=== PATIENT | male | born 1995 | race Caucasian/White ===

== ENCOUNTER 2020-09-16 20:29 | Emergency (ER) | payer SELFPAY ==
[2020-09-16 20:33] VITALS: BP 156/106; PULSE 110; RESP 18; TEMP 36.3; O2SAT 96
--- NOTE | 2020-09-16 20:35 | ED.GENADUL_ITS ---
Discharge Plan Disposition Patient Disposition: HOME Condition: Stable Discharge Details Clinical Impression: Tick bite Primary Care Provider: None,None ED Provider: Elliot Sutherland Home Meds and New Rx's Prescriptions: Discontinued oxycodone-acetaminophen 1 TAB tablet 1 tab PO HS PRN PRNQty: 7 RF: 0 cyclobenzaprine 10 MG tablet 10 mg PO TID PRN PRNQty: 7 RF: 0 Discharge Instructions Instructions: Tick Bite (ED) Additional Instructions: A single dose of doxycycline has been given now. Please keep the area clean and dry, you may change antibiotic dressing daily. Watch for new or worsening symptoms such as fever, joint pain, bull's-eye rash developing somewhere on your body, etc. return to the ER. Otherwise contact your primary care provider for outpatient reevaluation. Medical Decision Making Patient presents with a tick bite, likely less than 12-24 hours. The tick was removed and was not engorged. He is otherwise asymptomatic. Pulse in triage reports 110 however it was in the 80s during my evaluation. Patient is primarily concerned that there may be a piece of the jaw still in his bite site. Will provide a single dose of 200 mg doxycycline, no clear indication for 21 days therapy. Using an 11 blade, I was able to gently remove the scab from the wound. I was able to visualize the base of the wound and I see no evidence of a foreign body. Band-Aid was applied. Patient has no additional questions or concerns and is comfortable at this time Medical Records Medical records reviewed: Yes I reviewed the patient's medical records. HPI General Mode of arrival: ambulatory . Date/Time Provider Initiated Documentation: 09/16/20 20:35 . Limitations to Documentation: no limitations . Information obtained by: patient . HPI Narrative: 25-year-old gentleman who denies significant past medical history reports that he was outside working in the [place] yesterday all day. This morning while taking a shower he noticed a tick that was not engorged with blood on his posterior right shoulder. His mother was able to remove the tick using a needle. He is concerned that the job of the tick may still be embedded. He denies fever, rash, joint pain. He denies any pain or drainage. No additional questions or concerns Related Data Allergies Allergy/AdvReac Type Severity Reaction Status Date / Time amoxicillin AdvReac Mild Nausea Unverified 05/27/16 10:22 Review of Systems Constitutional Constitutional: Denies fever(s) Musculoskeletal Musculoskeletal: Denies arthralgias Integumentary/Breasts Skin/Breast: Denies rash [facility] Social History Smoking/Tobacco Use Status: Current-Occasional Smoking risk assessment performed?: Yes Alcohol Intake: current Alcohol Intake frequency: a few times a month Drug use: Occasionally Do you feel safe at home: Yes Do you feel safe in your relationship?: Yes Exam Const General: cooperative, healthy appearing, comfortable and no acute distress Orientation: alert and awake [facility] Head: normal to inspection, normocephalic and atraumatic Eyes General: appearance normal, both eyes and all related structures Conjunctivae: conjunctivae normal Sclera: sclerae normal Neck Neck: normal visual inspection, full ROM, trachea midline and supple Chest Chest: normal inspection of the chest Resp Effort & Inspection: normal respiratory effort and able to speak in complete sentences Cardio Rate: regular rate Rhythm: regular rhythm GI Inspection: normal to inspection Back/Spine/Pelvis Back: No back tenderness Skin Full body images: 1. Shallow scabbed wound. There is no surrounding erythema, warmth, tenderness, induration or fluctuance or drainage. I see no obvious signs of foreign body. Neuro General: patient alert, patient awake, moves all extremities and no focal motor deficits Gait: normal gait Motor: muscle tone normal throughout Sensory Exam: no sensory deficits noted Psych Appearance: grossly normal Mental Status: mental status grossly normal
[2020-09-16] MEDS: Doxycycline Hyclate 100 MG CAP 200 MG PO (21:09)
== END 2020-09-16 21:10 | disposition home or self-care (01) ==
PROVIDERS: Emergency Provider Physician Assistant
DX: S40.261A Insect bite (nonvenomous) of right shoulder, initial encounter (principal); W57.XXXA Bitten or stung by nonvenomous insect and other nonvenomous arthropods, initial encounter
CPT/HCPCS: 99283

== ENCOUNTER 2020-11-10 08:48 | Emergency (ER) | payer SELFPAY ==
[2020-11-10] VITALS (9 sets, daily range): BP systolic 110–132; BP diastolic 66–79; PULSE 77–107; RESP 16–24; TEMP 36.8–37; O2SAT 94–98
--- NOTE | 2020-11-10 09:25 | W.ED.GENAD ---
Discharge Plan Disposition Patient Disposition: HOME Condition: Stable Discharge Details Clinical Impression: Cough Primary Care Provider: None,None ED Provider: Elliot Sutherland Home Meds and New Rx's Prescriptions: No Action No Known Home Meds RF: 0 Discharge Instructions Instructions: Acute Cough (ED) Additional Instructions: At this time your chest x-ray is normal and her vital signs are unremarkable. As we discussed, Covid test is pending and out of abundance of precaution you should quarantine until the test result has come back negative. I am giving you a handout regarding Covid testing. In the meantime [id number] medications as directed for symptomatic control. Plenty of fluids to avoid dehydration. Please watch for new or worsening symptoms and return to the ER for any concerns. Lastly, I am giving you a work note for the rest of the week. I have placed you on the care management list to help expedite outpatient care. Stand Alone Forms: POSITIVE COVID-19/TO BE TESTED, Work Release Medical Decision Making 25-year-old gentleman presents today for URI-like symptoms. Clinically he appears well, nontoxic. He did present with mild tachycardia however during my evaluation his heart rate was in the 90s. He is afebrile, speaking in full sentences, O2 sats are 98% on room air. No direct contact with a Covid patient however there was an outbreak at his work. Will obtain single view chest x-ray and a send out Covid swab. We did discuss the importance of treating his symptoms with [id number] medications, the importance of return to the ER for new or worsening symptoms, and the importance of quarantining until his Covid test has resulted negative. If positive he will need to quarantine longer. Patient agreeable with this plan, no additional questions or concerns Chest x-ray read by radiology as negative. Patient without a primary care provider, will place him on the care management will help expedite outpatient care. Medical Records Medical records reviewed: Yes I reviewed the patient's medical records. Imaging Data Radiologic Study: Attestation: I personally reviewed and interpreted this imaging study as follows: Imaging: X-Ray Radiologist's impression: Chest x-ray negative Lab Data Labs: Covid pending HPI General Mode of arrival: ambulatory. Date/Time Provider Initiated Documentation: 11/10/20 09:04. Limitations to Documentation: no limitations. Information obtained by: patient. HPI Narrative: This is a 25-year-old gentleman, no significant past medical history. He states that he went to bed last night asymptomatic but upon awakening today he had a stuffy nose, slightly productive cough, mild headache, general fatigue. They checked his O2 sats at home and they were noted to be in the low 90s however with deep breathing his O2 sats went up into the 98% range. Patient states at work there has been in 9 different coworkers who have tested positive for Covid although he has not had any direct exposure. He presents today requesting a Covid test. He took the counter vitamins and supplements for his symptoms this morning. He states that his headache is already improving. He denies fever, neck pain, chest pain, shortness of breath abdominal pain, nausea, vomiting, change in bowel or bladder habits, skin rash. Related Data Home Medications Medication Instructions Recorded Confirmed Unknown [No Known Home Meds] 11/10/20 11/10/20 Allergies Allergy/AdvReac Type Severity Reaction Status Date / Time amoxicillin AdvReac Mild Nausea Unverified 11/10/20 09:04 General Stated Complaint: RespSymp [place]KE: 3 Review of Systems Constitutional Constitutional: Reports fatigue, Denies fever(s) and Reports headache(s) ENT Ears, Nose, Mouth, and Throat: Reports headache(s), Denies neck pain and Denies sore throat Cardiovascular Cardiovascular: Denies chest pain and Denies dyspnea Respiratory Respiratory: Reports cough and Denies dyspnea Gastrointestinal Gastrointestinal: Denies abdominal pain, Denies nausea and Denies vomiting Genitourinary Genitourinary: Denies dysuria Musculoskeletal Musculoskeletal: Denies back pain and Denies neck pain Integumentary/Breasts Skin/Breast: Denies rash Neurologic Neurologic: Reports headache(s) Endocrine Endocrine: Reports fatigue [facility] Social History Smoking/Tobacco Use Status: Former Tobacco Use Smoking risk assessment performed?: Yes Alcohol Intake: current Alcohol Intake frequency: a few times a month Drug use: Never Do you feel safe at home: Yes Do you feel safe in your relationship?: Yes Exam Const General: cooperative, healthy appearing, comfortable and no acute distress Orientation: alert and awake [facility] Head: normal to inspection, normocephalic and atraumatic Ears: external ears normal, TM's normal bilaterally and EAC's normal Face and sinus: normal facial exam Mouth: moist mucous membranes Throat: posterior oropharynx normal Eyes General: appearance normal, both eyes and all related structures Conjunctivae: conjunctivae normal Sclera: sclerae normal Neck Neck: normal visual inspection, full ROM, no lymphadenopathy, no meningeal signs, trachea midline, supple and nontender Resp Effort & Inspection: normal respiratory effort and able to speak in complete sentences Auscultation: clear to auscultation bilaterally Cardio Rate: regular rate Rhythm: regular rhythm GI Palpation: soft and nontender Back/Spine/Pelvis Back: No back tenderness Skin General skin exam: no rashes or lesions noted Neuro General: patient alert, patient awake, moves all extremities and no focal motor deficits Cognition: normal cognition Speech: speech normal Gait: normal gait Motor: muscle tone normal throughout Sensory Exam: no sensory deficits noted Extrem General: normal to inspection, full ROM, no pedal edema and no calf tenderness Psych Appearance: grossly normal Mental Status: mental status grossly normal Course Vital Signs Vital signs: Vital Signs Temperature 36.8 C 11/10/20 08:59 Pulse 107 H 11/10/20 08:59 Respiratory Rate 16 11/10/20 08:59 Blood Pressure 132/79 11/10/20 08:59 Pulse Oximetry 98 11/10/20 08:59 Temperature 36.8 C 11/10/20 08:59 Temperature Source Skin 11/10/20 08:59 Pulse 107 H 11/10/20 08:59 Respiratory Rate 16 11/10/20 08:59 Respiratory Effort Non-Labored 11/10/20 09:04 Respiratory Depth Normal 11/10/20 09:04 Blood Pressure 132/79 11/10/20 08:59 Blood Pressure Position Sitting 11/10/20 08:59 Pulse Oximetry 98 11/10/20 08:59 Oxygen Delivery Method Room Air 11/10/20 08:59 Oxygen Flow Rate 0 11/10/20 08:59 Pain Level 4 11/10/20 08:59
--- NOTE | 2020-11-10 09:52 | DI.RAD_ITS ---
EXAM: XR PORTABLE CHEST AP CLINICAL HISTORY: cough TECHNIQUE: 2D digital imaging was performed. COMPARISON: [facility] from 05/27/2016 FINDINGS: LUNGS: Clear. No pleural abnormality seen. HEART: Normal. MEDIASTINUM: Normal. BONES: Unremarkable. IMPRESSION: No acute pulmonary findings. DATA REPOSITORY: RADIATION DOSE DELIVERED:
--- NOTE | 2020-11-10 14:16 | NUR.NOTE ---
sent cm a referal for help to get pcp Dustin ed Nursing Note:
[2020-11-11 13:15] LABS: COVID-19 RT-PCR UVMMC Result Negative (Negative)
== END 2020-11-10 10:52 | disposition home or self-care (01) ==
PROVIDERS: Emergency Provider Physician Assistant; PCP Family Medicine
DX: R05 Cough (principal); R51.9 Headache, unspecified; Z03.818 Encounter for observation for suspected exposure to other biological agents ruled out
CPT/HCPCS: 99283; U0003; 71045